=== PATIENT | male | born 1975 | race Caucasian/White ===

== ENCOUNTER 2023-07-12 22:46 | Emergency (ER) | payer OTHER ==
[~2023-07-12] VITALS: Ht 177.8 cm; Wt 99.8 kg
[2023-07-12] MEDS ORDERED: CLONIDINE HCL 0.1 MG TABLET ONE (23:09)
[2023-07-12] MEDS: CLONIDINE HCL 0.1 MG TABLET PO ONE (23:10)
[2023-07-12 23:21] VITALS: BP 140/98; O2SAT 100
== END 2023-07-12 23:17 | disposition home or self-care (01) ==
LOC: ER 22:50
DX: Z04.1 Encounter for examination and observation following transport accident (principal); E78.5 Hyperlipidemia, unspecified; Z60.2 Problems related to living alone
CPT/HCPCS: A4606; A4663